=== PATIENT | male | born 1980 | race American Indian/Alaskan Native ===

== ENCOUNTER 2018-09-02 06:02 | Day surgery (SDC) | payer OTHER ==
[~2018-09-02 06:02] MED LIST: LACTATED RINGERS 1,000 ML IV SCH
[2018-09-02] MEDS ORDERED: XYLOCAINE 1% 20 mL ONE (07:35)
[2018-09-02] MEDS ORDERED: MARCAINE 0.25% INFILTRATI ONE ×2 (07:35→09:28)
[2018-09-02] MEDS ORDERED: ANCEF/STERILE WATER 2 GM/20 ML 2 GM/20 ML SYRINGE IV NR (08:00)
[2018-09-02] MEDS ORDERED: DEXMEDETOMIDINE IV ONE (08:50)
[2018-09-02] MEDS ORDERED: DIPRIVAN 10 MG/ML IV ONE ×3 (08:53→08:54)
[2018-09-02] MEDS ORDERED: SUBLIMAZE ONE (08:53)
[2018-09-02] MEDS ORDERED: VERSED ONE (09:07)
[2018-09-02] MEDS ORDERED: XYLOCAINE 1% 20 mL INFILTRATI ONE (09:28)
[2018-09-02] MEDS ORDERED: ZOFRAN IV PRN (09:28)
[2018-09-02] MEDS ORDERED: DILAUDID IV PRN (09:28)
--- NOTE | 2018-09-02 09:28 | Anesthesia Consultation ---
Anesthesia Consult and Med Hx - Airway Anesthetic Teeth Evaluation: Good ROM Head & Neck: Adequate Mental/Hyoid Distance: Adequate Mallampati Class: Class II Intubation Access Assessment: Good - Pulmonary Exam CTA: Yes - Cardiac Exam Cardiac Exam: RRR - Pre-Operative Health Status ASA Pre-Surgery Classification: ASA2 Proposed Anesthetic Plan: MAC - Pulmonary Hx Smoking: Yes (SINCE 23; 5 CIG/DAY) Hx Sleep Apnea: Yes (DENIES DX) - Central Nervous System Hx Psychiatric Problems: No - Other Systems Hx Alcohol Use: Yes Hx Substance Use: Yes (MARIJUANA)
--- NOTE | 2018-09-02 09:28 | Anesthesia Day of Surgery ---
Anesthesia Day of Surgery - Day of Surgery Patient Examined: Yes Patient H&P Reviewed: Yes Patient is NPO: Yes
[2018-09-02] MEDS ORDERED: ROBINUL ONE (09:40)
[2018-09-02] MEDS ORDERED: LACTATED RINGERS 1,000 ML ONE (09:40)
[2018-09-02] MEDS ORDERED: NEO SYNEPHRINE/NS Syringe(OR USE) IV ONE (09:40)
[2018-09-02] MEDS ORDERED: TORADOL ONE (09:40)
[2018-09-02] MEDS ORDERED: ZOFRAN ONE (09:40)
[2018-09-02] MEDS ORDERED: DECADRON ONE (09:40)
--- NOTE | 2018-09-02 10:09 | Short Stay Summary ---
Short Stay Documentation Date of service: 09/02/18 - History Principal diagnosis: soft tissue mass right buttock H&P: obtained from office - Allergies and Medications Current Medications: Allergies No Known Allergies Allergy (Verified 08/29/18 14:30) Home Medications Medication Instructions Recorded Confirmed Last Taken Type No Known Home Medications [No 08/29/18 08/29/18 Unknown History Reported Home Medications] Active Medications Hydromorphone HCl (Dilaudid) 0.5 mg IV Q10MIN PRN PRN Reason: Pain , Severe (7-10) Stop: 09/02/18 20:00 Cefazolin Sodium (Ancef/Sterile Water 2 Gm/20 Ml) 2 gm in 20 mls @ 80 mls/hr IV PREOP NR; Protocol Stop: 09/02/18 20:00 Lactated Ringer's (Lactated Ringers) 1,000 mls @ 75 mls/hr IV DIRECT LUCIA Ondansetron HCl (Zofran) 4 mg IV ONCE PRN PRN Reason: Nausea And Vomiting Stop: 09/02/18 16:00 - Brief post op/procedure progress note Date of procedure: 09/02/18 Pre-op diagnosis: soft tissue mass right buttock Post-op diagnosis: same Procedure: excision right buttock soft tissue mass Anesthesia: MAC, local Findings: 7 cm complex lipoma of right buttock Surgeon: EFRAIN BLANCO Estimated blood loss: minimal Pathology: list (soft tissue mass right buttock) Specimen disposition: to lab Condition: stable - Hospital course Hospital course: Pt observed in PACU and discharged to home in stable condition - Disposition Condition at discharge: Good Disposition: DC-01 TO HOME OR SELFCARE Short Stay Discharge Plan Activity: no restrictions Diet: regular Wound: open to air, per your surgeon's advice Additional Instructions: SEE PRINTED DISCHARGE INSTRUCTIONS Follow up with: [facility] [Primary Care Provider] - 7 Days EFRAIN BLANCO DO [Staff Physician] - 14 Days Prescriptions: HYDROcodone/APAP 5-325 [[place] 5/325] 1 each PO Q6H PRN #15 tablet PRN Reason: Pain
[2018-09-02 10:46] VITALS: BP 121/75
--- NOTE | 2018-09-02 13:23 | Post Anesthesia Evaluation ---
- Post Anesthesia Evaluation Patient Participated: Yes Airway Patent: Yes Stable Respiratory Function: Yes Nausea/Vomiting: No Temp > 96.8F: Yes Pain Manageable: Yes Adequeate Hydration: Yes Anesthesia Complications: No Block Receding Appropriately: Not Applicable Patient on Ventilator: No
--- NOTE | 2018-09-03 18:33 | Operative Report ---
PREOPERATIVE DIAGNOSIS: Soft tissue mass, right buttock. POSTOPERATIVE DIAGNOSIS: Soft tissue mass, right buttock. PROCEDURE: Excision of right buttock soft tissue mass. ANESTHESIA: MAC and local. FINDINGS: A 7 cm complex lipoma of right buttock. SURGEON: Dania Archer DO ESTIMATED BLOOD LOSS: Minimal. PATHOLOGY: Soft tissue mass, right buttock. SPECIMEN DISPOSITION: To lab. CONDITION AND DISPOSITION: The patient is stable to PACU. HISTORY OF PRESENT ILLNESS AND INDICATION: The patient is a 37-year-old male who presented to the surgery office with a growth on his right buttock. He was found to have an exophytic soft tissue mass measuring approximately 6 cm. The patient felt some discomfort with the mass in this area, especially with prolonged sitting. He wants to have the mass removed, and this was also recommended. All risks, benefits and alternatives to surgery were discussed with the patient. Consent obtained. PROCEDURE IN DETAIL: The patient was identified in preoperative area, taken back to the operating room and placed on the operating room table in supine position. After anesthesia was induced, the patient was placed in lateral decubitus position with left side down. All bony prominences were padded appropriately. The right buttock at the area of the soft tissue mass was prepped and draped in the usual sterile fashion. A timeout was performed. The area of the elliptical incision was marked using a marking pen. Then, local anesthetic was infiltrated into the skin and subcutaneous tissue at this site. An elliptical incision was made around the base of the mass using a 15 blade. Dissection was carried down through skin and subcutaneous tissue, then using Bovie electrocautery. Multiple lobulated soft tissue masses were encountered that were consistent with lipomas. These were carefully from the surrounding subcutaneous fat using a combination of blunt dissection with a hemostat and electrocautery. Once all lipomas were reduced into the specimen and circumferentially dissected from the surrounding tissue, it was transected off the wound bed using electrocautery. The lipoma and skin complex was measured and measured approximately 7 cm. This was passed off the table as specimen. The wound was then irrigated and hemostasis achieved using electrocautery. Once hemostasis was ensured, the wound was closed in a layered fashion with the deep dermal layer being closed with interrupted 3-0 Vicryl sutures. The skin was closed with a 4-0 Monocryl subcuticular running stitch and glue. At the end of the case, all sponge, instrument, sharp counts were correct x 2. The patient was awoken from anesthesia and taken to PACU in stable condition. JOB# [id number]
== END 2018-09-02 11:35 | disposition home or self-care (01) ==
LOC: OR 06:02
PROVIDERS: ATTEND Surgery
DX: D17.1 Benign lipomatous neoplasm of skin and subcutaneous tissue of trunk (principal); F17.210 Nicotine dependence, cigarettes, uncomplicated; G47.30 Sleep apnea, unspecified; Z72.89 Other problems related to lifestyle; Z98.890 Other specified postprocedural states; Z79.899 Other long term (current) drug therapy
CPT/HCPCS: 21931; 88305; J0690; J1100; J1885; J2250; J2370; J2405; J2704; J3010; J3490; J7120; 88307